=== PATIENT | female | born 2005 | race Caucasian/White ===

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

== ENCOUNTER 2025-04-12 16:45 | Emergency (ER) | payer OTHER, SELFPAY ==
--- NOTE | ~2025-04-12 | XR_ITS ---
CLINICAL HISTORY: back pain Three views of the thoracic spine. COMPARISON: None provided. FINDINGS: Normal vertebral body alignment. Vertebral body heights are maintained. No evidence of acute vertebral body injury. Vertebral disc space heights are maintained. No significant degenerative changes. Visualized portions of the lungs are unremarkable. IMPRESSION: 1. No radiographic evidence of acute injury to the thoracic spine. This document has been electronically signed by: Dereck Baldwin MD on 04/12/2025 19:17:25
--- NOTE | ~2025-04-12 | XR_ITS ---
CLINICAL HISTORY: Chest pain Two views of the chest. COMPARISON: None provided. FINDINGS: Normal heart and mediastinal contours. No consolidation. No pleural effusion. No pneumothorax. No acute fracture. IMPRESSION: 1. No consolidation. This document has been electronically signed by: Dereck Baldwin MD on 04/12/2025 19:07:12
[2025-04-12 17:03] VITALS: BP 125/66; PULSE 99; RESP 18; TEMP 36.4; O2SAT 97; BMI 21.4
--- NOTE | 2025-04-12 18:19 | ED_ITS ---
HPI - General Adult General Chief complaint: Back Pain/Injury Stated complaint: Back Pain Time Seen by Provider: 04/12/25 20:11 Source: patient Limitations: no limitations History of Present Illness ED Provider: Frances Sosa PA-C HPI narrative: 19-year-old female with a history of asthma, who vapes presents with mid back pain for 2 months. Patient states she has been having intermittent discomfort, worse with movement and breathing. Patient states within the past 2 months she has been exposed to viral syndrome. Denies active symptoms at this time, no fever, denies shortness of breath, unilateral calf pain or swelling, hemoptysis. Patient states she is on her feet all day at work, and does not wear supportive shoes. Denies trauma or other preceding heavy lifting injury that could have precipitated symptoms. Related Data Allergies Allergy/AdvReac Type Severity Reaction Status Date / Time No Known Allergies Allergy Verified 04/12/25 17:06 Review of Systems 2 Review of Systems: Yes all other systems are reviewed and are negative Constitutional: Constitutional: Denies fatigue and Denies fever(s) Cardiovascular: Cardiovascular: Denies chest pain and Denies dyspnea Respiratory: Respiratory: Denies cough, Denies dyspnea and Denies wheezing Gastrointestinal: Gastrointestinal: Denies abdominal pain, Denies nausea and Denies vomiting Musculoskeletal: Musculoskeletal: Reports back pain Endocrine: Endocrine: Denies fatigue Allergic/Immunologic: Allergic/Immunologic: Denies wheezing PMFSH Past Medical History Attestation statement: The following information was validated with the patient. Social History Social History Advance Directives: No Advance Directives Information Provided: No Physical Exam ED Vital Signs: Vital Signs - 24 hr 04/12/25 17:03 04/12/25 20:45 Temperature 97.6 F 98.1 F Pulse Rate 99 99 Respiratory Rate 18 16 Blood Pressure 125/66 133/76 Pulse Oximetry 97 98 Oxygen Delivery Method Room Air Room Air BMI result Body Mass Index 21.4 Const Other: Alert well-appearing Orientation/consciousness: patient oriented x3 Resp Effort & Inspection: normal respiratory effort Cardio Other: Normal peripheral perfusion Back/Spine/Pelvis Other: Pain elicited with the movement of the torso Thoracic/Lumbar Spine: paraspinal muscle tenderness Skin Other: Warm dry no rash Neuro General: patient oriented x3, gait normal, no focal motor deficits and CN's II- XI intact bilaterally Psych Other: Cooperative Course Course Course Narrative: RME: 19-year-old female presents to ED warm with upper back pain with pain on inspiration. Patient is not on control pills. Labs EKG chest x-ray ordered. Medical Decision Making Medical Decision Making MDM Narrative: 19-year-old female with a history of asthma, who vapes presents with mid back pain for 2 months. Patient states she has been having intermittent discomfort, worse with movement and breathing. Patient states within the past 2 months she has been exposed to viral syndrome. Denies active symptoms at this time, no fever, denies shortness of breath, unilateral calf pain or swelling, hemoptysis. Patient states she is on her feet all day at work, and does not wear supportive shoes. Denies trauma or other preceding heavy lifting injury that could have precipitated symptoms. Problem: Asthma History: Per patient I have considered the following differential diagnoses: Musculoskeletal strain, PE, pneumonia, pneumothorax, ACS, asthma exacerbation Plan: This is not ACS, the patient has no risk factors for coronary artery disease, EKG, labs with troponin and chest x-ray obtained from triage, her heart score is 0, and she has no complaint of chest pain. Her pain is focal to the thoracic region, worse with movement, this is consistent with musculoskeletal pain. She states she works an active job, she is on her feet all day, she is currently considering purchasing more supportive footwear. She has not had any infectious symptoms to suggest asthma exacerbation or pneumonia. Thought about pneumothorax, however she has had symptoms for weeks, she is hemodynamically stable and she denies shortness of breath. Patient complains that her discomfort is worse with deep inspiration, she does use OCs, a dimer was ordered from triage, it was negative. I have independently reviewed the following tests: Labs: Not anemic, no leukocytosis, no electrolyte abnormality troponin less than 2.7, dimer less than 150 EKG: Normal sinus rhythm, rate of 93, no ischemic changes no ectopy QTC 467 Chest x-ray: FINDINGS: Normal heart and mediastinal contours. No consolidation. No pleural effusion. No pneumothorax. No acute fracture. IMPRESSION: 1. No consolidation. Thoracic x-ray:FINDINGS: Normal vertebral body alignment. Vertebral body heights are maintained. No evidence of acute vertebral body injury. Vertebral disc space heights are maintained. No significant degenerative changes. Visualized portions of the lungs are unremarkable. IMPRESSION: 1. No radiographic evidence of acute injury to the thoracic spine. Differential Diagnosis Differential Diagnoses: The differential diagnosis associated with the presentation includes See [facility] Admission/Observation Consideration of admission/observation: Escalation of care including admission/observation considered Not applicable Lab Data [facility] Lab Attestation statement: I reviewed the patient's lab results. 04/12/25 18:42 04/12/25 18:42 Labs: Lab Results 04/12/25 Range/Units 18:42 WBC 5.6 (4.8-10.8) X10*3/uL RBC 4.19 L (4.20-5.50) X10*6/uL Hgb 13.1 (12.0-16.0) g/dl Hct 37.2 (37.0-47.0) % MCV 88.8 (80.0-98.0) fL MCH 31.3 (27.0-33.0) pg MCHC 35.2 H (31.0-35.0) g/dl RDW 11.7 (11.0-16.0) % Plt Count 173 (160-400) X10*3/uL MPV 10.1 (9.4-12.3) fL Immature Gran % (Auto) 0.2 (0.0-0.4) % Neut % (Auto) 44.3 L (45-73) % Lymph % (Auto) 37.6 (20-40) % [place] % (Auto) 9.1 (2-11) % Eos % (Auto) 7.5 H (0-4) % Baso % (Auto) 1.3 (0-2) % Lymph # (Auto) 2.1 (1.2-4.9) X10*3/uL [place] # (Auto) 0.5 (0.1-1.2) X10*3/uL Eos # (Auto) 0.4 (0.0-0.4) X10*3/uL Baso # (Auto) 0.1 (0.0-0.2) X10*3/uL Abs Immat Gran (auto) 0.01 (0.00-0.03) X10*3/uL Absolute Neuts (auto) 2.5 (2.0-8.3) x10*3/uL Absolute Nucleated RBC 0.000 (0.0-0.012) X10*3/uL Nucleated RBC % (auto) 0.0 (0.0-0.2) /100WBC PT 13.6 H (11.2-13.5) SEC INR 1.1 (0.9-1.1) APTT 26.9 (26.7-34.1) SEC D-Dimer High Sensitivty < 150 NG/ML Sodium 141 (135-145) mmol/L Potassium 3.9 (3.3-5.1) mmol/L Chloride 110 H (96-108) mmol/L Carbon Dioxide 26 (22-29) mmol/L Anion Gap 9 L (12-20) BUN 12 (9-16) mg/dL Creatinine 0.66 (0.5-1.4) mg/dL Estim Creat Clear Calc 128.3 Estimated GFR > 60 Random Glucose 91 (60-115) mg/dL Calcium 9.2 (8.4-10.2) mg/dL Total Bilirubin 0.6 (0.0-1.0) mg/dL AST 21 (5-31) U/L ALT 17 (0-31) U/L Alkaline Phosphatase 54 (39-117) U/L Troponin I High Sens < 2.7 (<3.5-17.0) ng/L Total Protein 7.5 (6.5-8.0) g/dL Albumin 4.3 (3.5-5.0) g/dL Independent Interpretation I performed an independent interpretation of an: EKG Radiology Impression Discussion of test interpretation with radiology: I have reviewed the radiologist's reading. Discharge Plan Discharge Clinical Impression: Thoracic back pain Patient Disposition: Home, Self-Care Instructions: Thoracic Pain (ED) Additional Instructions: All of your screening labs including a cardiac enzymes were normal, an EKG was obtained there were no concerning changes. Imaging of your thoracic spine and a chest x-ray obtained, there were no abnormalities. Your discomfort is consistent with musculoskeletal pain. See home care instructions. You can use [id number] ibuprofen 600 mg taken every 6 hours with food. You need to establish primary care, if your discomfort continues, you could benefit from physical therapy, a primary care provider would be able to initiate this process for you. Interventions: ED Discharge Assessment Last Done: 04/12/25 20:45 Discharge Date/Time: 04/12/25 20:46 Print Language: Uzbek
--- NOTE | 2025-04-12 18:19 | ECG_ITS ---
Test Reason : PLEURISY Blood Pressure : */* mmHG Vent. Rate : 93 BPM Atrial Rate : 93 BPM P-R Int : 154 ms QRS Dur : 104 ms QT Int : 376 ms P-R-T Axes : 66 92 38 degrees QTcB Int : 467 ms Normal sinus rhythm Rightward axis Borderline ECG No previous ECGs available Referred By: David Zhu Electronically Signed By: WENDY GIVENS
[2025-04-12 18:47] LABS: MANUAL DIFF FLAG NO
[2025-04-12 18:49] LABS: Hematocrit 37.2 % (37.0-47.0); Hemoglobin 13.1 g/dl (12.0-16.0); Imm Gran Abs Auto 0.01 X10*3/uL (0.00-0.03); Imm Gran Pct Auto 0.2 % (0.0-0.4); Lymphocytes Absolute Auto 2.1 X10*3/uL (1.2-4.9); Mean Corpuscular HGB Conc 35.2 g/dl (31.0-35.0); Mean Corpuscular Hemoglobin 31.3 pg (27.0-33.0); Mean Corpuscular Volume 88.8 fL (80.0-98.0); NRBC Abs Auto 0.000 X10*3/uL (0.0-0.012); NRBC Pct Auto 0.0 /100WBC (0.0-0.2); Platelet Count 173 X10*3/uL (160-400); Red Blood Count 4.19 X10*6/uL (4.20-5.50); White Blood Count 5.6 X10*3/uL (4.8-10.8)
[2025-04-12 18:56] LABS: INTERNATIONAL NORM RATIO 1.1 (0.9-1.1); Prothrombin Time 13.6 SEC (11.2-13.5)
[2025-04-12 18:58] LABS: Partial Thromboplastin Time 26.9 SEC (26.7-34.1)
[2025-04-12 19:05] LABS: Alanine Aminotransferase 17 U/L (0-31); Albumin Level 4.3 g/dL (3.5-5.0); Alkaline Phosphatase 54 U/L (39-117); Anion Gap 9 (12-20); Aspartate Amino Transferase 21 U/L (5-31); Blood Urea Nitrogen 12 mg/dL (9-16); Calcium 9.2 mg/dL (8.4-10.2); Carbon Dioxide 26 mmol/L (22-29); Chloride 110 mmol/L (96-108); Creatinine Clr Calc Pharmacy 128.3; Estimated Glomerular Filt Rate > 60; Potassium 3.9 mmol/L (3.3-5.1); Sodium 141 mmol/L (135-145); Total Protein 7.5 g/dL (6.5-8.0)
[2025-04-12 19:17] LABS: Troponin-I High Sensitivity < 2.7 ng/L (<3.5-17.0)
[2025-04-12 19:20] LABS: D Dimer High Sensitivity < 150 NG/ML
--- OUTSIDE RECORDS SUMMARY | 2025-04-12 20:09 | XMS_ITS | Clinical Summary ---
Author Organization [facility] Address [address] [place] [address] Care Team Providers Care Personal Health Coach Name Role Phone HarrisAngelo valverde DO Primary Care Provider [phone] Source Comments Please note that some or all of the patient's information could have additional privacy protections. State laws allow health care providers to render certain types of treatment to minors without parental consent. Please do not assume that this information can be shared solely by obtaining just the consent of the patient's parent/guardian. Please determine if all or part of the patient's care was rendered without parent/guardian involvement. 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 Not on file 02/04/2023 Share good news about positive changes: Not on f ile 02/04/2023 Comments No Sex and Gender Information Value Date Recorded Sex Assigned at Not on file Legal Sex Female 11:56 AM EST Gender Identity Not on file Sexual Orientation Not on file Last Filed Vital Signs Vital Sign Reading Time Taken Comments Blood Pressure 120/76 07/06/2021 10:49 AM EST Pulse 85 07/06/2021 10:49 AM EST Temperature 36.6 C (97.8 F) 07/06/2021 10:49 AM EST Respiratory Rate - - Oxygen Saturation 98% 07/06/2021 10: 49 AM EST Inhaled Oxygen Concentration - - Weight 55.3 kg (121 lb 14.6 oz) 022 10:49 AM EST Height 170.2 cm (5' 7 ) 07/06/2021 10:4 9 AM EST Body Mass Index 19.09 07/06/2021 10:49 AM EST Body Mass Index Percentile 33.31% 07/06 10:49 AM EST Growth Chart: [facility] (Girls, 2- 20 Years) Plan of Treatment Health Maintenance Due Date Last Done Comments DTaP/TDAP/TD VACCINES (1 - Tdap) 2012 ADOLESCENT HIV SCREENING 2018 COVID-19 Vaccine (2023-2 5 season) 2025 INFLUENZA (#1) 2025 NIRSEVIMAB VACCINES UNDER 8 MONTHS Aged Out No longer eligible based on patient's age to complete this topic Insurance CROSS Care Teams Personal Health Coach Relationship Specialty Start Date End Date Angelo Harris DO PCP - General General Pediatrics 04/23/21
--- OUTSIDE RECORDS SUMMARY | 2025-04-12 20:09 | XMS_ITS ---
Author Name [facility] Organization Unknown History of Medication Use Medication Directions Dispensed Refills Start Date End Date Stat us No known medications act omega Problems Problem Status Onset Date Problem Type Date of Resoluti on Source Patellofemoral syndrome of both knees active 2021-07-06 ProblemAct [facility] Pes planus of both feet active 2021-07-06 ProblemAct [facility] Benign joint hypermobility syndrome active 2021-07-06 ProblemAct [facility] Encounters Encounter Type Encounter Reason Primary Diagnosis Location Date Ambulatory [facility] 07/11/2021 Ambulatory [facility] 07/03/2021 Care Team Organization Name Specialty Phone Email Start Date End Da te Angelo [facility] 07/12/202112/21
[2025-04-12 20:45] VITALS: BP 133/76; PULSE 99; RESP 16; TEMP 36.7; O2SAT 98
== END 2025-04-12 20:46 | disposition home or self-care (01) ==
PROVIDERS: Physician Assistant; Emergency Provider Emergency Medicine
DX: M54.6 Pain in thoracic spine (principal); R09.1 Pleurisy; M54.50 Low back pain, unspecified; Z79.899 Other long term (current) drug therapy
CPT/HCPCS: 36415; 71046; 72072; 80053; 84484; 85025; 85379; 85610; 85730; 93005; 99283

== ENCOUNTER → 2025-04-12 18:19 | Outpatient (BNV) | payer OTHER, SELFPAY | PROVIDERS: Emergency Provider Emergency Medicine; Visit Provider Internal Medicine | DX: R09.1 Pleurisy (principal) | CPT/HCPCS: 93010 ==

== ENCOUNTER → 2025-04-12 18:19 | Outpatient (BNV) | payer OTHER, SELFPAY | PROVIDERS: Visit Provider Radiology Diagnostic Radiology | DX: M54.6 Pain in thoracic spine (principal); R07.9 Chest pain, unspecified | CPT/HCPCS: 71046; 72072 ==